=== PATIENT | female | born 1945 | race Caucasian/White ===

== ENCOUNTER → 2017-06-24 | Outpatient (CLI) | payer BC, MEDICARE | LOC: LAB.WCP 08:00 | PROVIDERS: ATTEND Physician Assistant Medical | DX: M79.676 Pain in unspecified toe(s) (principal) | CPT/HCPCS: 36415; 84550 ==

== ENCOUNTER 2020-12-17 09:51 | Outpatient (CLI) | payer MEDICARE ==
[2020-12-17 10:48] LABS: EOSINOPHILS # (AUTO) 0.1 10^3/uL (0.0-0.7); EOSINOPHILS % (AUTO) 3.1 %; HGB - HEMOGLOBIN 13.6 g/dL (12.0-16.0); LYMPHOCYTES # (AUTO) 1.3 10^3/uL (1.5-3.5); MEAN CORPUSCULAR HEMOGLOBIN 30.6 pg (27.0-31.0); MEAN CORPUSCULAR HGB CONC 32.1 g/dL (32.0-36.0); MEAN CORPUSCULAR VOLUME 95.3 fL (81.0-99.0); MEAN PLATELET VOLUME 10.3 fL (7.9-10.8); MONOCYTES # (AUTO) 0.3 10^3/uL (0.0-1.0); MONOCYTES % (AUTO) 6.3 %; NEUTROPHILS # (AUTO) 2.4 10^3/uL (1.5-6.6); NEUTROPHILS % (AUTO) 57.4 %; PLT - PLATELET COUNT 227 10^3/uL (130-450); RED BLOOD COUNT 4.45 10^6/uL (4.20-5.40); RED CELL DISTRIBUTION WIDTH 12.6 % (12.0-15.0); WHITE BLOOD COUNT 4.1 x10^3/uL (4.8-10.8)
[2020-12-17 11:16] LABS: THYROID STIMULATING HORMONE 1.52 uIU/mL (0.34-5.60)
[2020-12-17 14:08] LABS: HEMOGLOBIN A1c% 5.1 % (4.27-6.07)
[2020-12-17 17:27] LABS: ALBUMIN 4.3 g/dL (3.2-5.5); ALKALINE PHOSPHATASE 90 IU/L (42-121); ALT ALANINE AMINOTRANSFERASE 18 IU/L (10-60); AST ASPARTATE AMINOTRANSFERASE 21 IU/L (10-42); BILIRUBIN,TOTAL 0.7 mg/dL (0.2-1.0); BUN - BLOOD UREA NITROGEN 13 mg/dL (6-20); CARBON DIOXIDE - CO2 26 mmol/L (21-32); CHLORIDE 103 mmol/L (101-111); CHOL/HDL RATIO 2.4 (<4.4); CHOLESTEROL 200 mg/dL; CREATININE 0.7 mg/dL (0.4-1.0); GLUCOSE 96 mg/dL (70-100); HDL CHOLESTEROL 84 mg/dL; LDL CHOLESTEROL,CALCULATED 101 mg/dL; LDL/HDL RATIO 1.2 (<4.4); TOTAL PROTEIN 6.5 g/dL (6.7-8.2); URIC ACID 5.1 mg/dL (2.6-7.2); VLDL CHOLESTEROL 15 mg/dL
[2020-12-19 10:52] LABS: ANA SCREEN NEGATIVE (NEGATIVE)
== END 2020-12-17 09:52 | disposition home or self-care (01) ==
LOC: LAB 09:51
PROVIDERS: ATTEND Internal Medicine
DX: Z13.6 Encounter for screening for cardiovascular disorders (principal); C18.9 Malignant neoplasm of colon, unspecified; R20.2 Paresthesia of skin; M25.519 Pain in unspecified shoulder; H26.9 Unspecified cataract; F41.9 Anxiety disorder, unspecified; G47.00 Insomnia, unspecified; Z11.59 Encounter for screening for other viral diseases
CPT/HCPCS: 36415; 80053; 80061; 82607; 83036; 83721; 84443; 84550; 85025; 86038; 86317; 86803

== ENCOUNTER 2021-01-14 08:28 | Outpatient (CLI) | payer MEDICARE ==
--- NOTE | 2021-01-15 13:27 | Mammography Report ---
BILATERAL DIGITAL SCREENING MAMMOGRAM 3D/2D: 01/14/2021 CLINICAL: Routine screening. Comparison is made to exam dated: 05/07/2008 mammogram - [facility]. The tissue of both breasts is extremely dense, which lowers the sensitivity of mammography. No significant masses, calcifications, or other findings are seen in either breast. There has been no significant interval change. IMPRESSION: NEGATIVE There is no mammographic evidence of malignancy. A 1 year screening mammogram is recommended. This exam was interpreted at Station ID: [id number]. NOTE: For mammograms, a report in lay terms will be sent to the patient. Approximately 15% of breast malignancies will not be visualized mammographically. In the management of a palpable breast mass, a negative mammogram must not discourage biopsy of a clinically suspicious lesion. Electronically Signed By: Ramu Leyva M.D. [email or web address]:01/14/2021 09:48:31 ACR BI-RADS Category 1: Negative 3341F PARENCHYMAL PATTERN: (VD) - The breast(s) demonstrate(s) extremely dense parenchyma, limiting the sen sitivity of mammography. BI-RADS CATEGORY: (1) - 1 RECOMMENDATION: (ANNUAL) - Recommend routine annual screening mammography. [id number] 1 year screening LATERALITY: (B)
== END 2021-01-14 08:29 | disposition home or self-care (01) ==
LOC: DI 08:28
PROVIDERS: ATTEND Internal Medicine
DX: Z12.31 Encounter for screening mammogram for malignant neoplasm of breast (principal)

== ENCOUNTER 2021-03-04 14:57 | Outpatient (CLI) | payer MEDICARE ==
--- NOTE | 2021-03-05 15:25 | Ultrasound Report ---
PROCEDURE: Duplex Lwr Ext Arterial Bilat INDICATIONS: POOR CIRCULATION IN FEET, NUMBNESS TECHNIQUE: Color and pulse Doppler interrogation was performed of both lower extremity arterial systems, with im age documentation. COMPARISON: None FINDINGS: Right lower extremity: Common femoral artery: 110 cm/sec, with triphasic flow. Deep femoral artery: 69.4 cm/sec, with triphasic flow. Proximal superficial femoral artery: 99.1 cm/sec, with triphasic flow. Mid superficial femoral artery: 113 cm/sec, with triphasic flow. Distal superficial femoral artery: 92.8 cm/sec, with triphasic flow. Popliteal artery: 116.2 cm/sec, with triphasic flow. Posterior tibial artery: 95.1 cm/sec, with triphasic flow. Anterior tibial artery/dorsalis pedis: 68/45 cm/sec, with biphasic flow. Castillo-scale imaging description: Mild plaque. No significant stenosis. At least two-vessel runoff. Al l waveforms biphasic or triphasic. Left lower extremity: Common femoral artery: 90.6 cm/sec, with triphasic flow. Deep femoral artery: 66.2 cm/sec, with triphasic flow. Proximal superficial femoral artery: 105.9 cm/sec, with triphasic flow. Mid superficial femoral artery: 100.9 cm/sec, with triphasic flow. Distal superficial femoral artery: 86.4 cm/sec, with biphasic flow. Popliteal artery: 97.3 cm/sec, with triphasic flow. Posterior tibial artery: 74.9 cm/sec, with biphasic flow. Anterior tibial artery/dorsalis pedis: 79.2/23.9 cm/sec, with biphasic flow. Castillo-scale imaging description: Mild plaque. No significant stenosis. At least two-vessel runoff. Al l waveforms biphasic or triphasic IMPRESSION: 1. No evidence of inflow stenosis. 2. Bilateral plaque without significant stenosis. Wide patency from the common femorals through the p opliteals. At least two-vessel runoff bilaterally. Reviewed by: Albin Leahy MD on 03/05/2021 3:23 PM PDT Approved by: Albin Leahy MD on 03/05/2021 3:23 PM PDT Station ID: [id number]
== END 2021-03-04 14:58 | disposition home or self-care (01) ==
LOC: DI 14:57
PROVIDERS: ATTEND Internal Medicine
DX: I70.203 Unspecified atherosclerosis of native arteries of extremities, bilateral legs (principal)
CPT/HCPCS: 93925